=== PATIENT | male | born 1955 | race Caucasian/White ===

== ENCOUNTER 2021-09-25 22:28 | Emergency (ER) | payer MEDICARE ==
--- NOTE | 2021-09-25 22:32 | ERPHSYRPT ---
- History of Present Illness Time Seen by Provider: 09/25/21 22:32 Source: patient Exam Limitations: no limitations Physician History: This is a 66-year-old white male patient who presents with 2 complaints. One is body aches and headache. The second 1 is left foot/heel pain when he ambulates it is been present for approximately 2 weeks. The body aches and headaches have been present for a few days. He has no known exposure to anyone that has been diagnosed with viral syndrome. However, his daughter does have tonsillitis. Patient denies chest pain. He denies shortness of breath. He denies fever. He denies nausea vomiting or diarrhea. The patient has not experienced any trauma to the left foot of any kind. Timing/Duration: day(s) (With few days for the body aches and headache), week(s) (2 weeks for the left heel pain) Cough Quality/Degree: no cough Possible Cause: no prior episodes Associated Symptoms: headache, muscle aches, other (Myalgias and arthralgias), No fever, No chest pain/soreness, No cough, No shortness of breath, No sore throat Allergies/Adverse Reactions: Iodinated Contrast Media Allergy (Verified 09/25/21 23:09) Home Medications: Sumatriptan Succinate 25 mg [Imitrex 25 MG] 100 mg PO Q12H PRN PRN 09/25/21 [History] diazePAM [Diazepam] 1 tab PO QID 09/25/21 [History] Travel Risk - International Travel Have you traveled outside of the country in past 3 weeks: No - Coronavirus Screening Are you exhibiting any of the following symptoms?: No Close contact with a COVID-19 positive Pt in past 14-21 Days: No - Review of Systems Constitutional: No Symptoms Eyes: No Symptoms Ears, Nose, & Throat: No Symptoms Respiratory: No Symptoms Cardiac: No Symptoms Abdominal/Gastrointestinal: No Symptoms Genitourinary Symptoms: No Symptoms Musculoskeletal: Other (Left foot pain) Skin: No Symptoms Neurological: No Symptoms Psychological: No Symptoms Endocrine: No Symptoms Hematologic/Lymphatic: No Symptoms Immunological/Allergic: No Symptoms All Other Systems: Reviewed and Negative - Past Medical History Pertinent Past Medical History: Yes - Past Surgical History Past Surgical History: Yes - Nursing Vital Signs Nursing Vital Signs: Initial Vital Signs Temperature 98.2 F 09/25/21 22:34 Pulse Rate 80 09/25/21 22:34 Respiratory Rate 20 09/25/21 22:34 Blood Pressure 147/93 09/25/21 22:34 O2 Sat by Pulse Oximetry 94 L 09/25/21 22:34 Pain Scale Pain Intensity [Left heel] 3 Pain Intensity 4 - Physical Exam General Appearance: no apparent distress, alert, anxiety, obese Eye Exam: PERRL/EOMI, eyes nml inspection Ears, Nose, Throat Exam: normal ENT inspection, moist mucous membranes Neck Exam: normal inspection, non-tender, supple, full range of motion Respiratory Exam: normal breath sounds, lungs clear, airway intact, No chest tenderness, No respiratory distress Cardiovascular Exam: regular rate/rhythm, normal heart sounds, normal peripheral pulses Gastrointestinal/Abdomen Exam: soft, normal bowel sounds, No tenderness Rectal Exam: not done Back Exam: normal inspection, normal range of motion, No CVA tenderness, No vertebral tenderness Extremity Exam: normal inspection, normal range of motion, pelvis stable, tenderness (Left heel plantar surface) Neurologic Exam: alert, oriented x 3, cooperative, 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, normal mood/affect, nml cerebellar function, nml station & gait, sensation nml Skin Exam: normal color, warm, dry Lymphatic Exam: No adenopathy SpO2 Interpretation: borderline oxygenation O2 Delivery: Room Air - Course Nursing assessment & vital signs reviewed: Yes Ordered Tests: Active Orders 24 hr Category Date Time Status FOOT (2 VIEWS) Stat Exams 09/25/21 Taken Lab/Rad Data: Laboratory Results 09/25/21 Range/Units 22:55 Influenza Type A Ag NEGATIVE (NEGATIVE) Influenza Type B Ag NEGATIVE (NEGATIVE) RSV (PCR) NEGATIVE (Negative) SARS-CoV-2 (PCR) NEGATIVE (NEGATIVE) - Progress Air Movement: good Progress Note: 09/25/21 23:14 Left foot x-ray shows no acute fracture or dislocation. There are heel spurs present with what appears to be some arthritic changes in the left heel region. Blood Culture(s) Obtained: No Counseled pt/family regarding: lab results, diagnosis, need for follow-up, rad results - Departure Departure Disposition: Home Clinical Impression: Arthralgia, Generalized muscle ache, Pain of left heel Condition: Stable Critical Care Time: No Additional Instructions: Drink plenty of fluids. Use Tylenol and ibuprofen for pain control if there are no contraindications. Follow-up with podiatry for further evaluation of your left foot pain and swelling. Ice bath/pack to the left foot and heel 3 times a day for the next 48 hours.
[2021-09-25 22:36] VITALS: BP 147/93; PULSE 80; O2SAT 94
[2021-09-25 23:38] LABS: INFLUENZA A NEGATIVE (NEGATIVE); INFLUENZA B NEGATIVE (NEGATIVE); RESPIRATORY SYNCTIAL VIRUS NEGATIVE (Negative); SARS-CoV-2 Xpert Express NEGATIVE (NEGATIVE)
--- NOTE | 2021-09-26 08:58 | XRAY ---
Indication: Heel pain and swelling. Comparison: None 2 nonweightbearing views left foot demonstrates mild osteopenia, small posterior/tiny plantar heel spurs, and tiny round medial malleolus tip heterotopic ossification. No other bony, articular, or soft tissue abnormalities.
== END 2021-09-25 23:50 | disposition home or self-care (01) ==
LOC: ED 22:28
DX: M79.10 Myalgia, unspecified site (principal); M25.50 Pain in unspecified joint; M79.672 Pain in left foot; R51.9 Headache, unspecified; Z79.899 Other long term (current) drug therapy
CPT/HCPCS: 0241U; 73620; 99284